=== PATIENT | female | born 1960 | race American Indian/Alaskan Native ===

== ENCOUNTER 2017-08-20 10:19 | Outpatient (CLI) | payer BC ==
--- NOTE | 2017-08-20 14:20 | XRay Report ---
LEFT HIP RADIOGRAPHS INDICATION: Left hip pain. COMPARISON: None similar at this institution. FINDINGS: An AP pelvic radiograph with frontal and frog-leg projections of the left hip demonstrate intact pelvic and hip articulations. Mild hip degenerative narrowing possible, more so on the right. Numerous pelvic phleboliths. Nonobstructive bowel gas pattern. Normal imaged lower lumbar spine. CONCLUSION: No acute left hip radiographic abnormality with slight, age-appropriate hip degenerative narrowing possible, as above. Thank you for the opportunity to participate in this patient's care.
== END 2017-08-20 10:20 | disposition home or self-care (01) ==
LOC: SPVIMAG 10:19
PROVIDERS: ATTEND Orthopaedic Surgery
DX: M25.552 Pain in left hip (principal); I87.8 Other specified disorders of veins